=== PATIENT | male | born 1990 | race African-American/Black ===

== ENCOUNTER 2019-02-23 22:13 | Emergency (ER) | payer OTHER ==
[~2019-02-23] VITALS: Ht 172.7 cm; Wt 77.1 kg
--- NOTE | 2019-02-23 22:13 | NUR ---
pt brought in by [facility] s/p fall in parking lot. pt admits to etoh intake today. right forehead hematoma. pt uncooperative with assessment. a/o. pt refusing iv placement/blood draw. [id number] applied.
[2019-02-23] MEDS ORDERED: LACTATED RINGERS 1,000 ML IV ONE (22:19)
--- OUTSIDE RECORDS SUMMARY | 2019-02-23 22:22 | XMS REPORT | CCD ---
Author Author BRIA WHITTINGTON Unknown Address [address] [place] [address] Care Team Providers Care Golf Course Patroller Name Role Phone MENDENHALL, KERRIE DO Attphys MENDENHALL, KERRIE DO Prisurg Allergies Unknown or Not Available. Active Medications Unknown or Not Available. Problems Unknown or Not Available. Procedures Unknown or Not Available. Results Unknown or Not Available. Encounters Encounter Diagnosis Diagnosis Code Start Date Sialoadenitis, unspecified [id number] 12/21/2016 Function Status Unknown or Not Available. History of Immunizations Immunization Code Date OPV 11/26/1993 MMR 11/26/1993 DTaP 11/26/1993 Social History Smoking Status Code Start Date End Date Current every day smoker [id number] Vital Signs Unknown or Not Available. Function Status Unknown or Not Available. Goals Unknown or Not Available. ASSESSMENTS Unknown or Not Available. Health Concerns Section Unknown or Not Available.
--- OUTSIDE RECORDS SUMMARY | 2019-02-23 22:22 | XMS REPORT | Continuity of Care Document ---
Author Organization Unknown Address Unknown Allergies There is no data. Medications There is no data. Problems There is no data. Procedures There is no data. Results There is no data. Encounters ACCT No. Visit Date/Time Discharge Status Pt. Type Provider Facility Loc./Unit Complaint [id number] 02/08/2019 09:00:00 02/08/2019 23:59:59 CLS Outpatient BETHEL WRIGHT [facility]
--- OUTSIDE RECORDS SUMMARY | 2019-02-23 22:22 | XMS REPORT | CCD ---
Author Author BRIA WHITTINGTON Organization Unknown Address [address] [place] [address] Care Team Providers Care Lace Stripper Name Role Phone [facility] Attphys Allergies Unknown or Not Available. Active Medications Unknown or Not Available. Problems Unknown or Not Available. Procedures Procedure Code Procedure Type Date MANDIBLE; [id number] 06/08/2017 Results Unknown or Not Available. Encounters Encounter Diagnosis Diagnosis Code Start Date Fracture of angle of right mandible, initial encounter for closed fracture [id number] 06/08/2017 Function Status Unknown or Not Available. History of Immunizations Immunization Code Date OPV 11/26/1993 MMR 11/26/1993 DTaP 11/26/1993 Plan of Treatment Unknown or Not Available. Social History Smoking Status Code Start Date End Date Current every day smoker [id number] Vital Signs Unknown or Not Available. Function Status Unknown or Not Available. Goals Unknown or Not Available. ASSESSMENTS Unknown or Not Available. Health Concerns Section Unknown or Not Available.
[2019-02-23] MEDS ORDERED: TETANUS,DIPTH,PERTUSS P/F (BOOSTRIX) 0.5 ML VIAL IM ONE (22:30)
--- NOTE | 2019-02-23 22:30 | ED Fall/Injury ---
General Chief Complaint: Trauma-Non Activation Stated Complaint: FALL/ETOH Source: police, EMS Exam Limitations: intoxication (PT UNABLE TO GIVE ANY INFORMATION DUE TO INTOXICAGTION), other (NO PRIOR VISITS HERE--ALL HISTORY IS UNOBTAINABLE) History of Present Illness Date Seen by Provider: Feb 23, 2019 Time Seen by Provider: 22:13 Initial Comments PT ARRIVES VIA EMS WITH [place] [employer] OFFICERS PT WALKS INTO ER WITH VERY UNSTEADY GAIT NO CERVICAL COLLOR NO IV ACCESS ATTEMPTED PT IS HEAVILY INTOXICATED, WAS FOUND DOWN [employer] PARK[employer] AND POLICE WERE CALLED--PT WAS FOUND [facility], LAYING ON THE PAVEMENT IN AN ALLEY BEHIND EYE CARE BUILDING IS UNKNOWN IF PT HAD LOSS OF CONSCIOUSNESS, BUT HAS ABRASION AND LARGE HEMATOMA TO RIGHT FOREHEAD AREA PT WITH SLURRED AND INCOMPREHENSIBLE SPEECH, AND PT NOT FOLLOWING COMMANDS ON ARRIVAL CERVICAL COLLAR PLACED ON ARRIVAL TO ER IRONICALLY, POLICE REPORT THAT THEY WERE CALLED ON THIS PT, EXACTLY ONE YEAR AGO TODAY, WITH SAME CLOTHING DESCRIPTION WHAT PT IS WEARING TODAY, WITH EXACT SAME CIRCUMSTANCES--DOWN IN [employer] PARKING LOT, INTOXICATED. HE IS FROM [facility]. Allergies and Home Medications Allergies Coded Allergies: No Known Drug Allergies (Unverified , 02/23/19) Home Medications Amoxicillin/Potassium Clav 1 Each Tablet, 1 EACH PO BID Prescribed by: LIZZIE MALCOLM on 02/23/19 232 Tramadol HCl 50 Mg Tablet, 50 MG PO Q4H PRN for PAIN-MODERATE Prescribed by: LIZZIE MALCOLM on 02/23/19 232 Patient Home Medication List Home Medication List Reviewed: Yes Review of Systems Review of Systems Constitutional: other (UNABLE TO OBTAIN ANY INFORMATION FROM PT) Physical Exam Vital Signs Vital Signs - First Documented 02/23/19 22:13 Temp 97.7 Pulse 85 Resp 20 B/P (MAP) 132/99 (110) Pulse Ox 97 O2 Delivery Room Air Capillary Refill : Height, Weight, BMI Height: '" Weight: lbs. oz. kg; BMI Method: General Appearance: thin, other (OBVIOUSLY INTOXICATED, REEKS OF ETOH, SPEECH HEAVILY SLURRED AND MOSTLY NON-SENSICAL OR UNINTELLIGIBLE. ) HEENT: PERRL/EOMI (PUPILS 5 MM AND VERY SLUGGISH. ); No photophobia; other (LARGE HEMATOMA WITH ABRASION TO RIGHT FOREHEAD AND BROW AREA; MILD SWELLING TO LEFT MANDIBLE, WITH SMALL SLIGHTLY BRUISED AND SWOLLEN AREA OF POSTERIOR BUCCAL MUCOSA WITH SMALL OPEN AREA TO BUCCAL MUCOSA ADJACENT TO POSTERIOR MOLAR--DOES NOT APPEAR TO EXTEND BETWEEN TEETH AND NO BLOOD IN MOUTH. PT ABLE TO FULLY OPEN JAW, NO SIGNFICANT TENDERNESS TO JAW . ) Neck: other (PLACED IN CERVICAL COLLAR ON ARRIVAL) Cardiovascular: no murmur, tachycardia Respiratory: chest non-tender, normal breath sounds, no respiratory distress, no accessory muscle use Peripheral Pulses: 2+ Dorsalis Pedis (R), 2+ Left Dors-Pedis (L), 2+ Radial Pulses (R), 2+ Radial Pulses (L) Gastrointestinal: non tender, soft Back: no CVA tenderness, no vertebral tenderness Extremities: normal range of motion, non-tender, normal inspection Neurologic/Psychiatric: no motor/sensory deficits (GROSSLY INTACT, BUT PT IS NOT FOLLOWING COMMANDS), alert, other (INTOXICATED, CANNOT FOLLOW COMMANDS OR SPEAK CLEARLY, GAIT VERY UNSTEADY ) Skin: normal color (PT IS BLACK), warm/dry, tattoos/piercings (MULTIPLE TATTOOS), other (ABRASION TO RIGHT FOREHEAD AND BROW AREA NOTED) Progress/Results/Core Measures Results/Orders Lab Results Laboratory Tests Test 02/23/19 23:04 Range/Units Urine Color YELLOW Urine Clarity CLEAR Urine pH 5 5-9 Urine Specific [place] 1.010 L 1.016-1.022 Urine Protein 1+ H NEGATIVE Urine Glucose (UA) NEGATIVE NEGATIVE Urine Ketones NEGATIVE NEGATIVE Urine Nitrite NEGATIVE NEGATIVE Urine Bilirubin NEGATIVE NEGATIVE Urine Urobilinogen NORMAL NORMAL MG/DL Urine Leukocyte Esterase NEGATIVE NEGATIVE Urine RBC (Auto) NEGATIVE NEGATIVE Urine RBC NONE /HPF Urine WBC NONE /HPF Urine Squamous Epithelial Cells RARE /HPF Urine Crystals NONE /LPF Urine Bacteria NEGATIVE /HPF Urine Casts NONE /LPF Urine Mucus NEGATIVE /LPF Urine Culture Indicated NO Urine Opiates Screen NEGATIVE NEGATIVE Urine Oxycodone Screen NEGATIVE NEGATIVE Urine Methadone Screen NEGATIVE NEGATIVE Urine Propoxyphene Screen NEGATIVE NEGATIVE Urine Barbiturates Screen NEGATIVE NEGATIVE Ur Tricyclic Antidepressants Screen NEGATIVE NEGATIVE Urine Phencyclidine Screen NEGATIVE NEGATIVE Urine Amphetamines Screen NEGATIVE NEGATIVE Urine Methamphetamines Screen NEGATIVE NEGATIVE Urine Benzodiazepines Screen NEGATIVE NEGATIVE Urine Cocaine Screen NEGATIVE NEGATIVE Urine Cannabinoids Screen NEGATIVE NEGATIVE My Orders Orders - LIZZIE MALCOLM DO Ed Iv/Invasive Line Start (02/23/19 22:19) Ct Head/Cervical Spine Wo (02/23/19 22:19) Cbc With Automated Diff (02/23/19 22:19) Drug Screen Stat (Urine) (02/23/19 22:19) Protime With Inr (02/23/19 22:19) Partial Thromboplastin Time (02/23/19 22:19) Ua Culture If Indicated (02/23/19 22:19) Ed Iv/Invasive Line Start (02/23/19 22:19) Lactated Ringers (Lr 1000 Ml Iv Solution (02/23/19 22:19) Cervical Collar (02/23/19 22:19) Dipht,Pertuss(Acell),Tet Adult (Boostrix (02/23/19 22:30) Amoxicillin/Clavulanate Tablet (Augmenti (02/23/19 23:30) Vital Signs/I&O 02/23/19 02/23/19 22:13 23:25 Temp 97.7 98.2 Pulse 85 77 Resp 20 16 B/P (MAP) 132/99 (110) 128/98 (108) Pulse Ox 97 99 O2 Delivery Room Air Room Air Progress Progress Note : Progress Note PT TRYING TO PULL C-COLLAR OFF PT IS UNCOOPERATIVE FOR IV STICK PT REFUSES TETANUS VACCINATION PRIOR TO GOING TO CT, SPEECH CLEARER, ORIENTED TO PLACE--KNOWS HE IS IN [place] AND IN HOSPITAL. PT REFUSES TO RETURN TO CT FOR ADDITIONAL VIEWS OF MANDIBLE, DESPITE INFORMING HIM OF JAW FRACTURE. STRESSED THE IMPORTANCE OF NEED FOR ADDITIONAL TESTS, AND NEED FOR FOLLOW UP WITH MAXILLOFACIAL SURGEON FOR TREATMENT OF JAW FRACTURE, WELL IMPORTANCE OF TAKING ANTIBIOTICS TO PREVENT INFECTION CERVICAL COLLAR REMOVED AFTER OBTAINING CT REPORT FROM [facility] PT DENIES NECK PAIN OR PAIN ANYWHERE PT INSISTS ON LEAVING PT IS MORE ORIENTED, SPEECH IS MUCH CLEARER, AND GAIT IS STEADY POLICE REPORT THAT HE IS NOT UNDER ARREST, AND THEY ARE ESCORTING HIM OUT OF ER Diagnostic Imaging Comments CT HEAD/CERVICAL SPINE---NO INTRACRANIAL INJURY, CERVICAL SPINE WITHOUT ACUTE INJURY, COMMINUTED LEFT MANDIBULAR FRACTURE--ALL PER [facility] VIA FAX AT 1757 Reviewed: Reviewed by Me Departure Impression Primary Impression: HEAD INJURY WITH UNKNOWN LOSS OF CONSCIOUSNESS Additional Impressions: OPEN LEFT MANDIBLE FRACTURE Alcohol intoxication Disposition: 01 HOME, SELF-CARE Condition: Stable Departure-Patient Inst. Referrals: CRISTA ACOSTA DDS NO,LOCAL PHYSICIAN (PCP) Primary Care Physician Patient Instructions: Alcohol Abuse and Alcoholism (DC), Concussion, Adult (DC), Jaw Fracture (DC) Add. Discharge Instructions: FOLLOW UP WITH DR. ACOSTA ON TUESDAY FOR FURTHER CARE ICE TO JAW AREA AT 20 MINUTE INTERVALS GOT YOUR PRESCRIPTIONS FILLED IN THE MORNING AND TAKE THEM PRESCRIBED All discharge instructions reviewed with patient and/or family. Voiced understanding. Scripts Tramadol HCl (Ultram) 50 Mg Tablet 50 MG PO Q4H PRN for PAIN-MODERATE for 3 Days, TAB Prov: LIZZIE MALCOLM DO 02/23/19 Amoxicillin/Potassium Clav (Augmentin 875-125 Tablet) 1 Each Tablet 1 EACH PO BID for INFECTION, #20 TAB Prov: LIZZIE MALCOLM DO 02/23/19 LIZZIE MALCOLM DO Feb 23, 2019 22:30
[2019-02-23 23:10] LABS: BILIRUBIN,URINE NEGATIVE (NEGATIVE); CLARITY,URINE CLEAR; COLOR,URINE YELLOW; GLUCOSE, URINE (UA) NEGATIVE (NEGATIVE); KETONES,URINE NEGATIVE (NEGATIVE); LEUKOCYTE ESTERASE ,URINE NEGATIVE (NEGATIVE); NITRITE,URINE NEGATIVE (NEGATIVE); PH,URINE 5 (5-9); PROTEIN,URINE 1+ (NEGATIVE); UROBILINOGEN,URINE NORMAL (NORMAL)
[2019-02-23 23:19] LABS: BACTERIA,URINE NEGATIVE /HPF; SQUAMOUS EPITHELIAL CELL,UR RARE /HPF
[2019-02-23 23:22] LABS: AMPHETAMINE SCREEN, URINE NEGATIVE (NEGATIVE); BARBITURATE SCREEN URINE NEGATIVE (NEGATIVE); BENZODIAZEPINES SCREEN URINE NEGATIVE (NEGATIVE); CANNABINOID SCREEN, URINE NEGATIVE (NEGATIVE); COCAINE SCREEN URINE NEGATIVE (NEGATIVE); METHADONE STAT NEGATIVE (NEGATIVE); METHAMPHETAMINE SCREEN URINE S NEGATIVE (NEGATIVE); OPIATE SCREEN URINE NEGATIVE (NEGATIVE); OXYCODONE STAT NEGATIVE (NEGATIVE); PROPOXYPHENE STAT NEGATIVE (NEGATIVE); TRICYCLIC ANTIDEPRESSANTS SCRE NEGATIVE (NEGATIVE)
[2019-02-23] MEDS ORDERED: AMOX-358 PO (23:22)
[2019-02-23] MEDS ORDERED: TRAM-42 PO (23:22)
[2019-02-23 23:25] VITALS: BP 128/98
[2019-02-23] MEDS ORDERED: AUGMENTIN 875 MG TAB (AMOXICILLIN/CLAVULANATE) PO SCH (23:30)
--- NOTE | 2019-02-24 06:48 | Diagnostic Imaging Report ---
PROCEDURE: CT head and CT cervical spine without contrast. TECHNIQUE: Multiple contiguous axial images were obtained through the brain and cervical spine without the use of intravenous contrast. Sagittal and coronal reformations through the cervical spine were then performed. Auto Exposure Controls were utilized during the CT exam to meet ALARA standards for radiation dose reduction. INDICATION: Fall with pain and swelling. CT head: Right frontal and temporal scalp swelling and soft tissue hematoma present. No underlying calvarial fracture deformity. There is no abnormal extra-axial fluid collection. There is no hydrocephalus, edema, mass or mass effect. The basal cisterns are patent. There is no sulcal effacement. There is no evidence for an elevation of the intracranial pressures. The basilar cisterns are patent. There is no hemorrhage. There is no intraventricular hemorrhage. There is no hydrocephalus. There is a deformity of the medial left orbit. The lamina papyracea anteriorly without adjacent edema. This may be chronic although correlate with orbital pain. There is left maxillary sinus membrane thickening. There is no hemo-sinus or air-fluid level. The mastoid air cells and middle ear cavities were clear. CT cervical spine: Cervical body heights are maintained. The alignment is anatomic. The facet relationships unremarkable. There are fractures of the left mandible at the midline as well as left body just distal to the ramus. No bony dislocation of the temporomandibular joints. Zygomatic arches appeared intact. The pterygoid plates intact. There is acuity indeterminate buckle deformities of the left greater than right nasal bones without overlying swelling. No retrobulbar hematoma acuity indeterminate. Left medial orbital fracture of the lamina papyracea noted. No cervical spinal fracture or traumatic malalignment. No spinal canal stenosis. IMPRESSION: CT head: Scalp injury with no intracerebral hemorrhage or calvarial fracture deformity. No hemo-sinus. CT cervical spine: No cervical spinal fracture or traumatic malalignment. Fractures of the left mandibular angle and parasymphyseal body without TMJ dislocation, acuity indeterminate. Left medial orbital fracture. No hemo-sinus acuity. Indeterminate deformities of the nasal bones greater left. Dictated by: Dictated on workstation # [id number]
== END 2019-02-23 23:27 | disposition home or self-care (01) ==
LOC: ER 22:19
DX: S06.0X0A Concussion without loss of consciousness, initial encounter (principal); S02.609A Fracture of mandible, unspecified, initial encounter for closed fracture; F10.129 Alcohol abuse with intoxication, unspecified; Z23 Encounter for immunization; W19.XXXA Unspecified fall, initial encounter
CPT/HCPCS: 70450; 72125; 80306; 81000